=== PATIENT | female | born 1955 ===

== ENCOUNTER → 2017-09-01 | Outpatient (CLI) | payer OTHER ==
[~2017-09-01] VITALS: Ht 121.9 cm; Wt 63.5 kg
[~2017-09-01] MED LIST: GLIMEPIRIDE1 MG; METFORMIN HCL1000 MG; SIMBRINZA 1%-0.28 ML; TESSALON PERLE100 MG PO; TUSNEL DIABETI118 ML PO; VASOTEC20 M1; ZOCOR40 MG
== END | disposition home or self-care (01) ==
LOC: PPHC 12:08
DX: B34.9 Viral infection, unspecified (principal)

== ENCOUNTER 2018-12-11 08:32 | Outpatient (CLI) | payer OTHER | END 2018-12-11 15:06 | disposition home or self-care (01) | LOC: LAB 08:32 | DX: F32.89 Other specified depressive episodes (principal); E78.89 Other lipoprotein metabolism disorders; M54.5 Low back pain; E55.9 Vitamin D deficiency, unspecified; E03.8 Other specified hypothyroidism; M89.8X8 Other specified disorders of bone, other site; E11.51 Type 2 diabetes mellitus with diabetic peripheral angiopathy without gangrene; E11.42 Type 2 diabetes mellitus with diabetic polyneuropathy; G62.89 Other specified polyneuropathies; M54.14 Radiculopathy, thoracic region; K21.9 Gastro-esophageal reflux disease without esophagitis; R32 Unspecified urinary incontinence; I11.9 Hypertensive heart disease without heart failure; Z79.84 Long term (current) use of oral hypoglycemic drugs; E11.319 Type 2 diabetes mellitus with unspecified diabetic retinopathy without macular edema; Z68.27 Body mass index [BMI] 27.0-27.9, adult ==

== ENCOUNTER 2019-05-11 09:34 | Outpatient (CLI) | payer OTHER | END 2019-05-11 09:40 | disposition home or self-care (01) | LOC: LAB 09:34 | DX: F32.89 Other specified depressive episodes (principal); E78.89 Other lipoprotein metabolism disorders; M54.5 Low back pain; E55.9 Vitamin D deficiency, unspecified; E03.8 Other specified hypothyroidism; M89.8X8 Other specified disorders of bone, other site; E11.51 Type 2 diabetes mellitus with diabetic peripheral angiopathy without gangrene; E11.42 Type 2 diabetes mellitus with diabetic polyneuropathy; G62.89 Other specified polyneuropathies; M54.14 Radiculopathy, thoracic region; K21.9 Gastro-esophageal reflux disease without esophagitis; R32 Unspecified urinary incontinence; I11.9 Hypertensive heart disease without heart failure; Z79.84 Long term (current) use of oral hypoglycemic drugs; E11.319 Type 2 diabetes mellitus with unspecified diabetic retinopathy without macular edema; Z68.27 Body mass index [BMI] 27.0-27.9, adult ==

== ENCOUNTER 2019-09-26 08:42 | Outpatient (CLI) | payer OTHER | END 2019-09-26 08:58 | disposition home or self-care (01) | LOC: LAB 08:42 | DX: F32.89 Other specified depressive episodes (principal); E78.89 Other lipoprotein metabolism disorders; M54.5 Low back pain; E55.9 Vitamin D deficiency, unspecified; E03.8 Other specified hypothyroidism; M89.8X8 Other specified disorders of bone, other site; E11.51 Type 2 diabetes mellitus with diabetic peripheral angiopathy without gangrene; E11.42 Type 2 diabetes mellitus with diabetic polyneuropathy; G62.89 Other specified polyneuropathies; M54.14 Radiculopathy, thoracic region; K21.9 Gastro-esophageal reflux disease without esophagitis; R32 Unspecified urinary incontinence; I11.9 Hypertensive heart disease without heart failure; Z79.84 Long term (current) use of oral hypoglycemic drugs; E11.319 Type 2 diabetes mellitus with unspecified diabetic retinopathy without macular edema; Z68.27 Body mass index [BMI] 27.0-27.9, adult; Z12.11 Encounter for screening for malignant neoplasm of colon ==

== ENCOUNTER 2019-09-28 14:58 | Outpatient (CLI) | payer OTHER | END 2019-09-28 15:23 | disposition home or self-care (01) | LOC: MAMO-SONO 14:58 | DX: Z12.31 Encounter for screening mammogram for malignant neoplasm of breast (principal); F32.89 Other specified depressive episodes; E78.89 Other lipoprotein metabolism disorders; M54.5 Low back pain; E55.9 Vitamin D deficiency, unspecified; E03.8 Other specified hypothyroidism; M89.8X8 Other specified disorders of bone, other site; E11.51 Type 2 diabetes mellitus with diabetic peripheral angiopathy without gangrene; E11.42 Type 2 diabetes mellitus with diabetic polyneuropathy; G62.89 Other specified polyneuropathies; M54.14 Radiculopathy, thoracic region; Z12.13 Encounter for screening for malignant neoplasm of small intestine ==

== ENCOUNTER → 2020-03-01 09:28 | Outpatient (CLI) | payer OTHER | END | disposition home or self-care (01) | LOC: LAB 09:28 | PROVIDERS: ATTEND Internal Medicine | DX: E03.8 Other specified hypothyroidism (principal); F32.89 Other specified depressive episodes; E78.89 Other lipoprotein metabolism disorders; M54.5 Low back pain; E55.9 Vitamin D deficiency, unspecified; M89.8X8 Other specified disorders of bone, other site; E11.51 Type 2 diabetes mellitus with diabetic peripheral angiopathy without gangrene; E11.42 Type 2 diabetes mellitus with diabetic polyneuropathy; G62.89 Other specified polyneuropathies; M54.14 Radiculopathy, thoracic region; K21.9 Gastro-esophageal reflux disease without esophagitis; R32 Unspecified urinary incontinence; I11.9 Hypertensive heart disease without heart failure; Z79.84 Long term (current) use of oral hypoglycemic drugs; E11.319 Type 2 diabetes mellitus with unspecified diabetic retinopathy without macular edema; Z68.27 Body mass index [BMI] 27.0-27.9, adult ==

== ENCOUNTER → 2020-06-20 07:41 | Outpatient (CLI) | payer OTHER | END | disposition home or self-care (01) | LOC: LAB 07:41 | PROVIDERS: ATTEND Internal Medicine | DX: E11.319 Type 2 diabetes mellitus with unspecified diabetic retinopathy without macular edema (principal); F32.89 Other specified depressive episodes; I11.9 Hypertensive heart disease without heart failure; Z68.27 Body mass index [BMI] 27.0-27.9, adult; Z79.84 Long term (current) use of oral hypoglycemic drugs; M54.5 Low back pain; G62.89 Other specified polyneuropathies; E11.42 Type 2 diabetes mellitus with diabetic polyneuropathy; E78.89 Other lipoprotein metabolism disorders; E11.51 Type 2 diabetes mellitus with diabetic peripheral angiopathy without gangrene; E55.9 Vitamin D deficiency, unspecified ==

== ENCOUNTER 2020-12-02 08:02 | Outpatient (CLI) | payer OTHER | END 2020-12-02 08:05 | disposition home or self-care (01) | LOC: LAB 08:02 | PROVIDERS: ATTEND Internal Medicine | DX: E11.319 Type 2 diabetes mellitus with unspecified diabetic retinopathy without macular edema (principal); F32.9 Major depressive disorder, single episode, unspecified; I11.9 Hypertensive heart disease without heart failure; Z68.27 Body mass index [BMI] 27.0-27.9, adult; Z79.84 Long term (current) use of oral hypoglycemic drugs; M54.5 Low back pain; G62.9 Polyneuropathy, unspecified; E11.42 Type 2 diabetes mellitus with diabetic polyneuropathy; E78.9 Disorder of lipoprotein metabolism, unspecified; E11.51 Type 2 diabetes mellitus with diabetic peripheral angiopathy without gangrene; E55.9 Vitamin D deficiency, unspecified ==

== ENCOUNTER 2020-12-02 08:37 | Outpatient (CLI) | payer OTHER | END 2020-12-02 08:43 | disposition home or self-care (01) | LOC: MAMO-SONO 08:37 | PROVIDERS: ATTEND Internal Medicine | DX: Z12.31 Encounter for screening mammogram for malignant neoplasm of breast (principal); E11.319 Type 2 diabetes mellitus with unspecified diabetic retinopathy without macular edema; F32.9 Major depressive disorder, single episode, unspecified; I11.9 Hypertensive heart disease without heart failure; Z68.27 Body mass index [BMI] 27.0-27.9, adult; Z79.84 Long term (current) use of oral hypoglycemic drugs; M54.5 Low back pain; G62.9 Polyneuropathy, unspecified; E11.42 Type 2 diabetes mellitus with diabetic polyneuropathy; E78.9 Disorder of lipoprotein metabolism, unspecified; E11.51 Type 2 diabetes mellitus with diabetic peripheral angiopathy without gangrene; E55.9 Vitamin D deficiency, unspecified ==

== ENCOUNTER 2020-12-04 07:38 | Outpatient (CLI) | payer OTHER | END 2020-12-04 07:46 | disposition home or self-care (01) | LOC: LAB 07:38 | PROVIDERS: ATTEND Internal Medicine | DX: E74.89 Other specified disorders of carbohydrate metabolism (principal); F32.89 Other specified depressive episodes; I11.9 Hypertensive heart disease without heart failure; Z68.27 Body mass index [BMI] 27.0-27.9, adult; Z79.84 Long term (current) use of oral hypoglycemic drugs; M54.5 Low back pain; G62.89 Other specified polyneuropathies; E78.89 Other lipoprotein metabolism disorders; E55.9 Vitamin D deficiency, unspecified ==

== ENCOUNTER → 2021-05-07 09:13 | Outpatient (CLI) | payer OTHER | END | disposition home or self-care (01) | LOC: LAB 09:13 | PROVIDERS: ATTEND Internal Medicine | DX: E11.51 Type 2 diabetes mellitus with diabetic peripheral angiopathy without gangrene (principal); E55.9 Vitamin D deficiency, unspecified; Z12.31 Encounter for screening mammogram for malignant neoplasm of breast; E78.89 Other lipoprotein metabolism disorders; G62.89 Other specified polyneuropathies; M54.5 Low back pain; Z79.84 Long term (current) use of oral hypoglycemic drugs; Z68.27 Body mass index [BMI] 27.0-27.9, adult; I11.9 Hypertensive heart disease without heart failure; F32.89 Other specified depressive episodes ==

== ENCOUNTER 2021-12-01 08:48 | Outpatient (CLI) | payer OTHER | END 2021-12-01 09:03 | disposition home or self-care (01) | LOC: LAB 08:48 | PROVIDERS: ATTEND Internal Medicine | DX: E11.319 Type 2 diabetes mellitus with unspecified diabetic retinopathy without macular edema (principal); F32.9 Major depressive disorder, single episode, unspecified; I11.9 Hypertensive heart disease without heart failure; Z68.27 Body mass index [BMI] 27.0-27.9, adult; Z79.84 Long term (current) use of oral hypoglycemic drugs; M54.50 Low back pain, unspecified; G62.9 Polyneuropathy, unspecified; E11.42 Type 2 diabetes mellitus with diabetic polyneuropathy; E78.9 Disorder of lipoprotein metabolism, unspecified; E11.51 Type 2 diabetes mellitus with diabetic peripheral angiopathy without gangrene; E55.9 Vitamin D deficiency, unspecified; Z12.31 Encounter for screening mammogram for malignant neoplasm of breast; Z12.11 Encounter for screening for malignant neoplasm of colon ==

== ENCOUNTER → 2021-12-07 | Outpatient (CLI) | payer OTHER | END | disposition home or self-care (01) | LOC: NUCLEAR 12-04 13:00 | PROVIDERS: ATTEND Internal Medicine | DX: E11.319 Type 2 diabetes mellitus with unspecified diabetic retinopathy without macular edema (principal); F32.9 Major depressive disorder, single episode, unspecified; I11.9 Hypertensive heart disease without heart failure; Z68.27 Body mass index [BMI] 27.0-27.9, adult; Z79.84 Long term (current) use of oral hypoglycemic drugs; M54.59 Other low back pain; G62.9 Polyneuropathy, unspecified; E11.42 Type 2 diabetes mellitus with diabetic polyneuropathy; E78.9 Disorder of lipoprotein metabolism, unspecified; E11.51 Type 2 diabetes mellitus with diabetic peripheral angiopathy without gangrene; E55.9 Vitamin D deficiency, unspecified ==

== ENCOUNTER 2022-01-15 09:14 | Outpatient (CLI) | payer OTHER | END 2022-01-15 09:19 | disposition home or self-care (01) | LOC: LAB 09:14 | PROVIDERS: ATTEND Internal Medicine | DX: E11.319 Type 2 diabetes mellitus with unspecified diabetic retinopathy without macular edema (principal); F32.9 Major depressive disorder, single episode, unspecified; I11.9 Hypertensive heart disease without heart failure; Z68.27 Body mass index [BMI] 27.0-27.9, adult; Z79.84 Long term (current) use of oral hypoglycemic drugs; M54.50 Low back pain, unspecified; G62.9 Polyneuropathy, unspecified; E11.42 Type 2 diabetes mellitus with diabetic polyneuropathy; E78.9 Disorder of lipoprotein metabolism, unspecified; E11.51 Type 2 diabetes mellitus with diabetic peripheral angiopathy without gangrene; Z28.9 Immunization not carried out for unspecified reason ==

== ENCOUNTER → 2022-05-08 08:02 | Outpatient (CLI) | payer OTHER | END | disposition home or self-care (01) | LOC: LAB 08:02 | PROVIDERS: ATTEND Internal Medicine | DX: E11.319 Type 2 diabetes mellitus with unspecified diabetic retinopathy without macular edema (principal); F32.9 Major depressive disorder, single episode, unspecified; I11.9 Hypertensive heart disease without heart failure; Z68.27 Body mass index [BMI] 27.0-27.9, adult; Z79.84 Long term (current) use of oral hypoglycemic drugs; M54.50 Low back pain, unspecified; G62.9 Polyneuropathy, unspecified; E11.42 Type 2 diabetes mellitus with diabetic polyneuropathy; E78.9 Disorder of lipoprotein metabolism, unspecified; E11.51 Type 2 diabetes mellitus with diabetic peripheral angiopathy without gangrene; E55.9 Vitamin D deficiency, unspecified; Z12.31 Encounter for screening mammogram for malignant neoplasm of breast ==

== ENCOUNTER 2022-05-10 15:37 | Outpatient (CLI) | payer OTHER | END 2022-05-10 15:42 | disposition home or self-care (01) | LOC: LAB 15:37 | PROVIDERS: ATTEND Internal Medicine | DX: Z20.822 Contact with and (suspected) exposure to COVID-19 (principal); Z20.828 Contact with and (suspected) exposure to other viral communicable diseases; R50.9 Fever, unspecified ==

== ENCOUNTER 2022-08-09 07:07 | Outpatient (CLI) | payer OTHER | END 2022-08-09 07:08 | disposition home or self-care (01) | LOC: LAB 07:07 | PROVIDERS: ATTEND Internal Medicine | DX: E11.319 Type 2 diabetes mellitus with unspecified diabetic retinopathy without macular edema (principal); F32.9 Major depressive disorder, single episode, unspecified; I11.9 Hypertensive heart disease without heart failure; Z68.27 Body mass index [BMI] 27.0-27.9, adult; Z79.84 Long term (current) use of oral hypoglycemic drugs; M54.50 Low back pain, unspecified; G62.9 Polyneuropathy, unspecified; E11.42 Type 2 diabetes mellitus with diabetic polyneuropathy; E78.9 Disorder of lipoprotein metabolism, unspecified; E11.51 Type 2 diabetes mellitus with diabetic peripheral angiopathy without gangrene; E55.9 Vitamin D deficiency, unspecified ==

== ENCOUNTER 2022-11-18 08:45 | Outpatient (CLI) | payer OTHER | END 2022-11-18 08:57 | disposition home or self-care (01) | LOC: LAB 08:45 | PROVIDERS: ATTEND Internal Medicine | DX: E11.319 Type 2 diabetes mellitus with unspecified diabetic retinopathy without macular edema (principal); F32.9 Major depressive disorder, single episode, unspecified; I11.9 Hypertensive heart disease without heart failure; Z68.27 Body mass index [BMI] 27.0-27.9, adult; Z79.84 Long term (current) use of oral hypoglycemic drugs; M54.59 Other low back pain; G62.9 Polyneuropathy, unspecified; E11.42 Type 2 diabetes mellitus with diabetic polyneuropathy; E78.9 Disorder of lipoprotein metabolism, unspecified; E11.51 Type 2 diabetes mellitus with diabetic peripheral angiopathy without gangrene; E55.9 Vitamin D deficiency, unspecified; Z12.31 Encounter for screening mammogram for malignant neoplasm of breast; Z12.11 Encounter for screening for malignant neoplasm of colon ==

== ENCOUNTER → 2022-11-18 | Outpatient (CLI) | payer OTHER | END | disposition home or self-care (01) | LOC: MAMO-SONO 09:29 | PROVIDERS: ATTEND Internal Medicine | DX: Z13.1 Encounter for screening for diabetes mellitus (principal); N63.0 Unspecified lump in unspecified breast ==

== ENCOUNTER 2023-02-24 08:40 | Outpatient (CLI) | payer OTHER | END 2023-02-24 08:42 | disposition home or self-care (01) | LOC: LAB 08:40 | PROVIDERS: ATTEND Internal Medicine | DX: E11.319 Type 2 diabetes mellitus with unspecified diabetic retinopathy without macular edema (principal); F32.9 Major depressive disorder, single episode, unspecified; I11.9 Hypertensive heart disease without heart failure; Z68.27 Body mass index [BMI] 27.0-27.9, adult; Z79.84 Long term (current) use of oral hypoglycemic drugs; M54.59 Other low back pain; G62.9 Polyneuropathy, unspecified; E11.42 Type 2 diabetes mellitus with diabetic polyneuropathy; E78.9 Disorder of lipoprotein metabolism, unspecified; E11.51 Type 2 diabetes mellitus with diabetic peripheral angiopathy without gangrene; E55.9 Vitamin D deficiency, unspecified; Z28.39 Other underimmunization status; Z12.31 Encounter for screening mammogram for malignant neoplasm of breast ==

== ENCOUNTER 2023-06-29 08:51 | Outpatient (CLI) | payer OTHER ==
[2023-06-29 10:14] LABS: HEMOGLOBIN 9.1 g/dL (12.0-15.00); MEAN CELL VOLUME 83.7 fL (80.00-100.00); MEAN CORPUSCULAR HEMOGLOBIN 28.1 pg (27.00-32.0); MEAN CORPUSCULAR HGB CONC 33.7 g/dl (32.0-36.0); PLATELET COUNT 303 K/uL (150-450); RED BLOOD COUNT 3.23 M/uL (4.00-6.00); RED CELL DISTRIBUTION WIDTH 14.2 % (11.5-14.5)
[2023-06-29 10:20] LABS: PH,URINE 5.5 (5.0-8.0); URINE APPEARANCE Cloudy; URINE BILIRRUBIN Negative (NEGATIVE); URINE BLOOD Trace; URINE COLOR Yellow; URINE GLUCOSE Negative (NEGATIVE); URINE LEUKOCYTE Moderate; URINE NITRATE Negative; URINE UROBILINOGEN 0.2 E.U./dl
[2023-06-29 10:25] LABS: URINE EPITHELIAL CELLS 1.7 uL (0.0-38.8); URINE RBC 2.8 uL (0.0-20.8); URINE WBC 653.4 uL (0.0-23.2)
[2023-06-29 10:38] LABS: URINE BACTERIA > 9821.5 uL (0.0-1933); URINE PROTEIN 100 (NEGATIVE)
[2023-06-29 11:06] LABS: ALBUMIN 3.7 gm/dL (3.4-5.0); BILIRUBIN TOTAL 0.27 mg/dL (0.3-1.2); CHOL HDL RATIO 3.1 (0-5.0); CREATININE SERUM 2.62 mg/dL (0.55-1.02); FREE TRIODOTIRONINE 2.07 pg/ml (2.18-3.98); GFR 18.14; GLOBULINA 3.8 G/DL (2.4-3.5); PHOSPHOROUS 3.6 mg/dL (2.5-4.9); POTASSIUM 4.53 mEq/L (3.5-5.1); T4 FREE 0.97 NG/ML (0.76-1.46); T4 TOTAL 7.39 UG/DL (4.8-13.9); TOTAL PROTEIN 7.5 gm/dL (6.4-8.2); TSH 1.82 uIU/mL (0.358-3.74)
== END 2023-06-29 08:52 | disposition home or self-care (01) ==
LOC: LAB 08:51
PROVIDERS: ATTEND Internal Medicine
DX: E11.319 Type 2 diabetes mellitus with unspecified diabetic retinopathy without macular edema (principal); F32.9 Major depressive disorder, single episode, unspecified; I11.9 Hypertensive heart disease without heart failure; Z68.27 Body mass index [BMI] 27.0-27.9, adult; Z79.84 Long term (current) use of oral hypoglycemic drugs; M54.50 Low back pain, unspecified; G62.9 Polyneuropathy, unspecified; E11.42 Type 2 diabetes mellitus with diabetic polyneuropathy; E11.51 Type 2 diabetes mellitus with diabetic peripheral angiopathy without gangrene; E78.9 Disorder of lipoprotein metabolism, unspecified; E55.9 Vitamin D deficiency, unspecified; Z12.31 Encounter for screening mammogram for malignant neoplasm of breast

== ENCOUNTER 2023-07-05 07:13 | Outpatient (CLI) | payer OTHER ==
[2023-07-05 10:16] LABS: URINE PROT QUANT 24 HR 825.3 MG/24HR (42-225); URINE PROT QUANT 24HR 39.3 MG/DL
== END 2023-07-05 07:14 | disposition home or self-care (01) ==
LOC: LAB 07:13
PROVIDERS: ATTEND Internal Medicine
DX: E11.319 Type 2 diabetes mellitus with unspecified diabetic retinopathy without macular edema (principal); F32.9 Major depressive disorder, single episode, unspecified; I11.9 Hypertensive heart disease without heart failure; M54.59 Other low back pain; G62.9 Polyneuropathy, unspecified; E11.42 Type 2 diabetes mellitus with diabetic polyneuropathy; E11.51 Type 2 diabetes mellitus with diabetic peripheral angiopathy without gangrene; Z12.31 Encounter for screening mammogram for malignant neoplasm of breast; Z28.39 Other underimmunization status; Z79.84 Long term (current) use of oral hypoglycemic drugs; Z68.27 Body mass index [BMI] 27.0-27.9, adult

== ENCOUNTER 2023-09-20 07:04 | Outpatient (CLI) | payer OTHER ==
[2023-09-20 07:53] LABS: PH,URINE 5.5 (5.0-8.0); URINE APPEARANCE Clear; URINE BILIRRUBIN Negative (NEGATIVE); URINE BLOOD Negative; URINE COLOR Yellow; URINE GLUCOSE Negative (NEGATIVE); URINE LEUKOCYTE Trace; URINE NITRATE Negative; URINE UROBILINOGEN 0.2 E.U./dl
[2023-09-20 07:58] LABS: URINE BACTERIA 32.7 uL (0.0-1933); URINE EPITHELIAL CELLS 7.7 uL (0.0-38.8); URINE RBC 2.1 uL (0.0-20.8); URINE WBC 60.7 uL (0.0-23.2)
[2023-09-20 08:07] LABS: CREATININE URINE 40.3 MG/DL; URINE PROT QUANT 24HR 41.1 MG/DL
[2023-09-20 08:09] LABS: URINE PROTEIN 100 (NEGATIVE)
[2023-09-20 08:10] LABS: ALBUMIN 3.9 gm/dL (3.4-5.0); CALCIUM 10.6 mg/dL (8.5-10.1); CHOL HDL RATIO 3.3 (0-5.0); CREATININE SERUM 2.54 mg/dL (0.55-1.02); GFR 18.8; PHOSPHOROUS 4.2 mg/dL (2.5-4.9); POTASSIUM 4.87 mEq/L (3.5-5.1)
[2023-09-20 08:14] LABS: URINE PROT QUANT 24 HR 873.38 MG/24HR (42-225)
[2023-09-20 08:16] LABS: HEMATOCRIT 24.8 % (36.0-45.00); MEAN CELL VOLUME 83.6 fL (80.00-100.00); MEAN CORPUSCULAR HEMOGLOBIN 28.2 pg (27.00-32.0); MEAN CORPUSCULAR HGB CONC 33.8 g/dl (32.0-36.0); PLATELET COUNT 346 K/uL (150-450); RED BLOOD COUNT 2.97 M/uL (4.00-6.00); RED CELL DISTRIBUTION WIDTH 14.1 % (11.5-14.5)
[2023-09-20 08:26] LABS: URIC ACID 5.7 mg/dL (2.5-7.5)
[2023-09-20 08:27] LABS: CREATININE SERUM 2.54 mg/dL (0.6-1.0); HEMOGLOBIN 8.4 g/dL (12.0-15.00)
[2023-09-20 08:28] LABS: CREATINE CLEARANCE 23.5 ML/MIN (97-137)
[2023-09-22 18:07] LABS: prot 65.2 mg/dL (Not Estab.)
== END 2023-09-20 07:06 | disposition home or self-care (01) ==
LOC: LAB 07:04
PROVIDERS: ATTEND Internal Medicine Nephrology
DX: N18.4 Chronic kidney disease, stage 4 (severe) (principal); I10 Essential (primary) hypertension; E11.22 Type 2 diabetes mellitus with diabetic chronic kidney disease; R80.9 Proteinuria, unspecified; E78.5 Hyperlipidemia, unspecified

== ENCOUNTER 2023-09-20 07:34 | Outpatient (CLI) | payer OTHER | END 2023-09-20 07:46 | disposition home or self-care (01) | LOC: SONOGRAMA 07:34 | PROVIDERS: ATTEND Internal Medicine Nephrology | DX: E11.22 Type 2 diabetes mellitus with diabetic chronic kidney disease (principal); N18.4 Chronic kidney disease, stage 4 (severe) ==

== ENCOUNTER → 2024-09-26 08:53 | Outpatient (CLI) | payer OTHER ==
[2024-09-26 09:37] LABS: HEMATOCRIT 32.1 % (36.0-45.00); HEMOGLOBIN 10.7 g/dL (12.0-15.00); MEAN CELL VOLUME 97.1 fL (80.00-100.00); MEAN CORPUSCULAR HEMOGLOBIN 32.3 pg (27.00-32.0); MEAN CORPUSCULAR HGB CONC 33.3 g/dl (32.0-36.0); PLATELET COUNT 379 K/uL (150-450); RED BLOOD COUNT 3.31 M/uL (4.00-6.00); RED CELL DISTRIBUTION WIDTH 15.6 % (11.5-14.5)
[2024-09-26 09:38] LABS: URINE APPEARANCE Clear; URINE BILIRRUBIN Negative (NEGATIVE); URINE BLOOD Trace; URINE COLOR Yellow; URINE GLUCOSE Negative (NEGATIVE); URINE KETONE Negative (NEGATIVE); URINE LEUKOCYTE Moderate; URINE NITRATE Negative; URINE UROBILINOGEN 0.2 E.U./dl
[2024-09-26 09:47] LABS: URINE EPITHELIAL CELLS 1.4 uL (0.0-38.8); URINE WBC 551.4 uL (0.0-23.2)
[2024-09-26 10:00] LABS: CREATININE URINE RANDOM 66.9 MG/DL (30-125)
[2024-09-26 10:13] LABS: ALBUMIN 3.7 gm/dL (3.4-5.0); BILIRUBIN TOTAL 0.31 mg/dL (0.3-1.2); CALCIUM 10.1 mg/dL (8.5-10.1); CHOL HDL RATIO 2.4 (0-5.0); CREATININE SERUM 3.25 mg/dL (0.55-1.02); GFR 14.11; GLOBULINA 3.5 G/DL (2.4-3.5); PHOSPHOROUS 5.6 mg/dL (2.5-4.9); POTASSIUM 5.39 mEq/L (3.5-5.1); TOTAL PROTEIN 7.2 gm/dL (6.4-8.2); URIC ACID 6.9 mg/dL (2.5-7.5)
[2024-09-26 10:36] LABS: URINE BACTERIA > 9821.5 uL (0.0-1933); URINE CAST 0.14 uL (0.0-1.40); URINE PROTEIN 100 (NEGATIVE); URINE RBC 1.9 uL (0.0-20.8)
== END | disposition home or self-care (01) ==
LOC: LAB 08:53
PROVIDERS: ATTEND Emergency Medicine Pediatric Emergency Medicine
DX: E11.319 Type 2 diabetes mellitus with unspecified diabetic retinopathy without macular edema (principal); F32.9 Major depressive disorder, single episode, unspecified; I11.9 Hypertensive heart disease without heart failure; Z68.27 Body mass index [BMI] 27.0-27.9, adult; Z79.84 Long term (current) use of oral hypoglycemic drugs; G62.9 Polyneuropathy, unspecified; E11.42 Type 2 diabetes mellitus with diabetic polyneuropathy; E78.9 Disorder of lipoprotein metabolism, unspecified; E11.51 Type 2 diabetes mellitus with diabetic peripheral angiopathy without gangrene; E55.9 Vitamin D deficiency, unspecified; N18.6 End stage renal disease; N18.31 Chronic kidney disease, stage 3a; D46.9 Myelodysplastic syndrome, unspecified; D59.10 Autoimmune hemolytic anemia, unspecified; E11.9 Type 2 diabetes mellitus without complications; Z12.31 Encounter for screening mammogram for malignant neoplasm of breast; N18.32 Chronic kidney disease, stage 3b; I10 Essential (primary) hypertension; E11.21 Type 2 diabetes mellitus with diabetic nephropathy; R80.9 Proteinuria, unspecified

== ENCOUNTER → 2024-11-15 10:39 | Outpatient (CLI) | payer OTHER ==
[2024-11-15 13:02] LABS: ob NEGATIVE (NEGATIVE)
== END | disposition home or self-care (01) ==
LOC: LAB 10:39
PROVIDERS: ATTEND Emergency Medicine Pediatric Emergency Medicine
DX: E11.319 Type 2 diabetes mellitus with unspecified diabetic retinopathy without macular edema (principal); F32.9 Major depressive disorder, single episode, unspecified; I11.9 Hypertensive heart disease without heart failure; Z68.27 Body mass index [BMI] 27.0-27.9, adult; Z79.84 Long term (current) use of oral hypoglycemic drugs; G62.9 Polyneuropathy, unspecified; E11.42 Type 2 diabetes mellitus with diabetic polyneuropathy; E78.9 Disorder of lipoprotein metabolism, unspecified; E11.51 Type 2 diabetes mellitus with diabetic peripheral angiopathy without gangrene; E55.9 Vitamin D deficiency, unspecified; N18.6 End stage renal disease; N18.31 Chronic kidney disease, stage 3a; D46.9 Myelodysplastic syndrome, unspecified; D59.10 Autoimmune hemolytic anemia, unspecified; E11.9 Type 2 diabetes mellitus without complications; E11.69 Type 2 diabetes mellitus with other specified complication; Z12.31 Encounter for screening mammogram for malignant neoplasm of breast; Z12.11 Encounter for screening for malignant neoplasm of colon; R19.5 Other fecal abnormalities

== ENCOUNTER 2024-11-15 10:57 | Outpatient (CLI) | payer OTHER | END 2024-11-15 11:00 | disposition home or self-care (01) | LOC: MAMO-SONO 10:57 | PROVIDERS: ATTEND Internal Medicine | DX: N64.4 Mastodynia (principal); N63.0 Unspecified lump in unspecified breast; N60.09 Solitary cyst of unspecified breast; F32.9 Major depressive disorder, single episode, unspecified; I11.9 Hypertensive heart disease without heart failure; Z68.27 Body mass index [BMI] 27.0-27.9, adult; Z79.84 Long term (current) use of oral hypoglycemic drugs; G62.9 Polyneuropathy, unspecified; E11.42 Type 2 diabetes mellitus with diabetic polyneuropathy; E78.9 Disorder of lipoprotein metabolism, unspecified; E11.51 Type 2 diabetes mellitus with diabetic peripheral angiopathy without gangrene; E55.9 Vitamin D deficiency, unspecified; N18.6 End stage renal disease; Z12.31 Encounter for screening mammogram for malignant neoplasm of breast ==

== ENCOUNTER → 2024-12-27 08:43 | Outpatient (CLI) | payer OTHER ==
[2024-12-27 09:39] LABS: URINE APPEARANCE Clear; URINE BILIRRUBIN Negative (NEGATIVE); URINE BLOOD Trace; URINE COLOR Yellow; URINE GLUCOSE Negative (NEGATIVE); URINE KETONE Negative (NEGATIVE); URINE LEUKOCYTE Moderate; URINE NITRATE Negative; URINE UROBILINOGEN 0.2 E.U./dl
[2024-12-27 09:45] LABS: URINE BACTERIA 8556.6 uL (0.0-1933); URINE EPITHELIAL CELLS 16.6 uL (0.0-38.8); URINE RBC 4.2 uL (0.0-20.8); URINE WBC 448.6 uL (0.0-23.2)
[2024-12-27 09:48] LABS: CREATININE URINE RANDOM 72.3 MG/DL (30-125)
[2024-12-27 09:55] LABS: BASO % 1.3 % (0.1-1.2); EOS # 0.19 (0.04-0.54); HEMATOCRIT 41.4 % (34.1-44.9); HEMOGLOBIN 13.8 g/dL (11.2-15.7); LYMPH # 1.55 (1.18-3.74); LYMPH % 24.8 % (19.3-53.1); MEAN CORPUSCULAR HEMOGLOBIN 27.9 pg (25.6-32.2); MONO # 0.59 (0.24-0.82); MONO % 9.4 % (4.7-12.5); NEUT # 3.79 (1.56-6.13); NEUT % 60.7 % (34.0-71.1); PLATELET COUNT 372 K/uL (163-369); RED BLOOD COUNT 4.94 M/uL (3.93-5.22); RED CELL DISTRIBUTION WIDTH 15.7 % (11.6-14.4)
[2024-12-27 10:19] LABS: URINE CAST 0.58 uL (0.0-1.40); URINE PROTEIN 300 (NEGATIVE)
[2024-12-27 10:45] LABS: ALBUMIN 3.7 gm/dL (3.4-5.0); BILIRUBIN TOTAL 0.3 mg/dL (0.3-1.2); CALCIUM 9.4 mg/dL (8.5-10.1); CREATININE SERUM 2.91 mg/dL (0.55-1.02); GFR 15.98; GLOBULINA 3.6 G/DL (2.4-3.5); PHOSPHOROUS 4.1 mg/dL (2.5-4.9); POTASSIUM 5.55 mEq/L (3.5-5.1); T4 TOTAL 6.29 UG/DL (4.8-13.9); TOTAL PROTEIN 7.3 gm/dL (6.4-8.2); TSH 3.36 uIU/mL (0.358-3.74)
[2024-12-27 11:05] LABS: URIC ACID 6.5 mg/dL (2.5-7.5)
== END | disposition home or self-care (01) ==
LOC: LAB 08:43
PROVIDERS: ATTEND Internal Medicine
DX: E11.319 Type 2 diabetes mellitus with unspecified diabetic retinopathy without macular edema (principal); F32.9 Major depressive disorder, single episode, unspecified; I11.9 Hypertensive heart disease without heart failure; Z68.27 Body mass index [BMI] 27.0-27.9, adult; Z79.84 Long term (current) use of oral hypoglycemic drugs; G62.9 Polyneuropathy, unspecified; E11.42 Type 2 diabetes mellitus with diabetic polyneuropathy; E78.9 Disorder of lipoprotein metabolism, unspecified; E11.51 Type 2 diabetes mellitus with diabetic peripheral angiopathy without gangrene; E55.9 Vitamin D deficiency, unspecified; N18.6 End stage renal disease; N18.31 Chronic kidney disease, stage 3a; D46.9 Myelodysplastic syndrome, unspecified; D59.10 Autoimmune hemolytic anemia, unspecified; E11.9 Type 2 diabetes mellitus without complications; E11.69 Type 2 diabetes mellitus with other specified complication; Z12.31 Encounter for screening mammogram for malignant neoplasm of breast; Z12.11 Encounter for screening for malignant neoplasm of colon; I10 Essential (primary) hypertension; E11.21 Type 2 diabetes mellitus with diabetic nephropathy; R80.9 Proteinuria, unspecified

== ENCOUNTER 2025-04-02 06:40 | Outpatient (CLI) | payer OTHER ==
[2025-04-02 07:06] LABS: URINE APPEARANCE Turbid; URINE BILIRRUBIN Negative (NEGATIVE); URINE BLOOD Small; URINE COLOR Yellow; URINE GLUCOSE Negative (NEGATIVE); URINE KETONE Trace (NEGATIVE); URINE LEUKOCYTE Large; URINE NITRATE Negative; URINE UROBILINOGEN 0.2 E.U./dl
[2025-04-02 07:10] LABS: URINE BACTERIA 2400.9 uL (0.0-1933); URINE EPITHELIAL CELLS 16.9 uL (0.0-38.8); URINE RBC 2.7 uL (0.0-20.8); URINE WBC 2776.5 uL (0.0-23.2)
[2025-04-02 07:34] LABS: CREATININE URINE RANDOM 147.0 MG/DL (30-125)
[2025-04-02 07:45] LABS: BASO % 1.6 % (0.1-1.2); EOS # 0.22 (0.04-0.54); EOS % 2.9 % (0.7-7.0); LYMPH # 1.73 (1.18-3.74); LYMPH % 22.4 % (19.3-53.1); MEAN PLATELET VOLUME 11.00 fl (9.4-12.4); MONO # 0.75 (0.24-0.82); MONO % 9.7 % (4.7-12.5); NEUT # 4.86 (1.56-6.13); NEUT % 63.0 % (34.0-71.1); RED CELL DISTRIBUTION WIDTH 15.6 % (11.6-14.4)
[2025-04-02 07:47] LABS: ALT/SGPT 19.0 U/L (12-78); AST/SGOT 12.0 U/L (15-37); BILIRUBIN TOTAL 0.27 mg/dL (0.3-1.2); BUN CREA RATIO 15.0 (7.0-25.0); CREATININE SERUM 2.91 mg/dL (0.55-1.02); GFR 15.98; GLOBULINA 3.8 G/DL (2.4-3.5); GLUCOSE FASTING 142.0 mg/dL (65-100); OSMOLALITY SERUM 298.0 MOSM/KG (275-295)
[2025-04-02 07:48] LABS: URINE CAST 1.17 uL (0.0-1.40); URINE PROTEIN 100 (NEGATIVE)
== END 2025-04-02 06:49 | disposition home or self-care (01) ==
LOC: LAB 06:40
PROVIDERS: ATTEND Internal Medicine
DX: N18.4 Chronic kidney disease, stage 4 (severe) (principal); I10 Essential (primary) hypertension; E11.21 Type 2 diabetes mellitus with diabetic nephropathy; R80.9 Proteinuria, unspecified; E11.319 Type 2 diabetes mellitus with unspecified diabetic retinopathy without macular edema; F32.9 Major depressive disorder, single episode, unspecified; I11.9 Hypertensive heart disease without heart failure; Z68.27 Body mass index [BMI] 27.0-27.9, adult; Z79.84 Long term (current) use of oral hypoglycemic drugs; G62.9 Polyneuropathy, unspecified; E11.42 Type 2 diabetes mellitus with diabetic polyneuropathy; E78.9 Disorder of lipoprotein metabolism, unspecified; E11.51 Type 2 diabetes mellitus with diabetic peripheral angiopathy without gangrene; E55.9 Vitamin D deficiency, unspecified; N18.6 End stage renal disease; N18.31 Chronic kidney disease, stage 3a; D46.9 Myelodysplastic syndrome, unspecified; D59.10 Autoimmune hemolytic anemia, unspecified; E11.9 Type 2 diabetes mellitus without complications; E11.69 Type 2 diabetes mellitus with other specified complication; Z12.31 Encounter for screening mammogram for malignant neoplasm of breast

== ENCOUNTER → 2025-05-01 08:26 | Outpatient (CLI) | payer OTHER ==
[2025-05-01 09:14] LABS: BASO % 0.5 % (0.1-1.2); EOS # 0.31 (0.04-0.54); EOS % 2.7 % (0.7-7.0); LYMPH # 1.65 (1.18-3.74); LYMPH % 14.6 % (19.3-53.1); MEAN PLATELET VOLUME 11.20 fl (9.4-12.4); MONO # 0.61 (0.24-0.82); MONO % 5.4 % (4.7-12.5); NEUT # 8.66 (1.56-6.13); NEUT % 76.4 % (34.0-71.1); RED CELL DISTRIBUTION WIDTH 13.7 % (11.6-14.4)
[2025-05-01 09:19] LABS: URINE APPEARANCE Clear; URINE BILIRRUBIN Negative (NEGATIVE); URINE BLOOD Small; URINE COLOR Yellow; URINE GLUCOSE Negative (NEGATIVE); URINE KETONE Negative (NEGATIVE); URINE LEUKOCYTE Moderate; URINE NITRATE Negative; URINE UROBILINOGEN 0.2 E.U./dl
[2025-05-01 09:23] LABS: URINE BACTERIA 4511.8 uL (0.0-1933); URINE EPITHELIAL CELLS 4.7 uL (0.0-38.8); URINE WBC 590.4 uL (0.0-23.2)
[2025-05-01 09:42] LABS: INR 0.96
[2025-05-01 09:54] LABS: BUN CREA RATIO 17.0 (7.0-25.0); CREATININE SERUM 3.26 mg/dL (0.55-1.02); GFR 14.02; GLUCOSE FASTING 122.0 mg/dL (65-100); OSMOLALITY SERUM 301.0 MOSM/KG (275-295)
[2025-05-01 09:55] LABS: URINE CAST 0.14 uL (0.0-1.40); URINE PROTEIN 100 (NEGATIVE); URINE RBC 1.9 uL (0.0-20.8)
== END | disposition home or self-care (01) ==
LOC: LAB 08:26
DX: I15.8 Other secondary hypertension (principal); I10 Essential (primary) hypertension; E11.39 Type 2 diabetes mellitus with other diabetic ophthalmic complication; D68.32 Hemorrhagic disorder due to extrinsic circulating anticoagulants; D69.9 Hemorrhagic condition, unspecified

== ENCOUNTER 2025-07-16 06:56 | Outpatient (CLI) | payer OTHER ==
[2025-07-16 08:26] LABS: EOS # 0.29 (0.04-0.54); EOS % 4.6 % (0.7-7.0); LYMPH # 1.15 (1.18-3.74); LYMPH % 18.1 % (19.3-53.1); MEAN PLATELET VOLUME 11.40 fl (9.4-12.4); MONO # 0.66 (0.24-0.82); MONO % 10.4 % (4.7-12.5); NEUT # 4.10 (1.56-6.13); NEUT % 64.4 % (34.0-71.1); RED CELL DISTRIBUTION WIDTH 14.1 % (11.6-14.4)
[2025-07-16 08:30] LABS: BASO % 2.2 % (0.1-1.2); URINE APPEARANCE Cloudy; URINE BILIRRUBIN Negative (NEGATIVE); URINE BLOOD Small; URINE COLOR Yellow; URINE GLUCOSE Negative (NEGATIVE); URINE KETONE Negative (NEGATIVE); URINE LEUKOCYTE Moderate; URINE NITRATE Negative; URINE UROBILINOGEN 0.2 E.U./dl
[2025-07-16 08:34] LABS: URINE EPITHELIAL CELLS 9.8 uL (0.0-38.8); URINE RBC 6.3 uL (0.0-20.8); URINE WBC 975.0 uL (0.0-23.2)
[2025-07-16 08:37] LABS: URINE BACTERIA > 9821.5 uL (0.0-1933); URINE CAST 0.00 uL (0.0-1.40); URINE PROTEIN 300 (NEGATIVE)
[2025-07-16 08:55] LABS: ALT/SGPT 38.0 U/L (12-78); AST/SGOT 31.0 U/L (15-37); BILIRUBIN TOTAL 0.3 mg/dL (0.3-1.2); CHOL HDL RATIO 3.9 (0-5.0); GLOBULINA 3.9 G/DL (2.4-3.5); GLUCOSE FASTING 57.0 mg/dL (65-100); HDL 49.0 mg/dl (40-60); LDL 100.0 mg/dl (0-130); OSMOLALITY SERUM 297.0 MOSM/KG (275-295); VLDL 40.0 (0-39)
[2025-07-16 08:59] LABS: BUN CREA RATIO 14.0 (7.0-25.0); CREATININE SERUM 3.91 mg/dL (0.55-1.02); GFR 11.36
== END 2025-07-16 06:57 | disposition home or self-care (01) ==
LOC: LAB 06:56
PROVIDERS: ATTEND Internal Medicine
DX: E11.319 Type 2 diabetes mellitus with unspecified diabetic retinopathy without macular edema (principal); F32.9 Major depressive disorder, single episode, unspecified; I11.9 Hypertensive heart disease without heart failure; Z68.27 Body mass index [BMI] 27.0-27.9, adult; Z79.84 Long term (current) use of oral hypoglycemic drugs; G62.9 Polyneuropathy, unspecified; E11.42 Type 2 diabetes mellitus with diabetic polyneuropathy; E78.9 Disorder of lipoprotein metabolism, unspecified; E11.51 Type 2 diabetes mellitus with diabetic peripheral angiopathy without gangrene; E55.9 Vitamin D deficiency, unspecified; N18.31 Chronic kidney disease, stage 3a; D46.9 Myelodysplastic syndrome, unspecified; D59.10 Autoimmune hemolytic anemia, unspecified; E11.9 Type 2 diabetes mellitus without complications; E11.69 Type 2 diabetes mellitus with other specified complication; E11.22 Type 2 diabetes mellitus with diabetic chronic kidney disease; Z12.31 Encounter for screening mammogram for malignant neoplasm of breast